=== PATIENT | male | born 1960 | race Two or more races ===

== ENCOUNTER 2016-10-04 13:56 | Emergency (ER) | payer OTHER ==
[~2016-10-04] VITALS: Ht 157.5 cm; Wt 66.7 kg
--- NOTE | 2016-10-04 13:58 | NUR ---
PT BIBRA FROM AN URGENT CARE TO ER BED 09. PT STATES BEEN HAVING PRESSURE LIKE CHEST PAIN SINCE LAST NIGHT. MILD PAIN. 04/12. PT WAS GIVEN NITRO AND ASPIRIN DINING ROOM BUSSER W/ NO RELIEF. GOWNED AND PLACED ON MONITOR.
--- NOTE | 2016-10-04 14:21 | NUR ---
PT IS STATING HE IS PAIN FREE AT THIS TIME.
--- NOTE | 2016-10-04 14:21 | NUR ---
DR LOZANO AT BEDSIDE FOR EVAL.
[2016-10-04 14:45] LABS: BASOPHILS # (AUTO) 0.1 /CMM (0.0-0.2); BASOPHILS % (AUTO) 1.4 % (0.0-2.0); EOSINOPHILS # (AUTO) 0.3 /CMM (0.0-0.7); EOSINOPHILS % (AUTO) 2.4 % (0.0-6.0); HEMATOCRIT 45 % (39-51); HEMOGLOBIN 14.9 g/dL (13.5-17.5); LYMPHOCYTES # (AUTO) 3.5 /CMM (0.8-4.8); LYMPHOCYTES % (AUTO) 32.9 % (20.0-44.0); MEAN CORPUSCULAR HEMOGLOBIN 30 PG (26.0-33.0); MEAN CORPUSCULAR HGB CONC 33 g/dl (31.0-36.0); MEAN CORPUSCULAR VOLUME 91 fL (80-96); MONOCYTES # (AUTO) 0.6 /CMM (0.1-1.30); MONOCYTES % (AUTO) 5.7 % (2.0-12.0); NEUTROPHILS # (AUTO) 6.1 /CMM (1.8-8.9); NEUTROPHILS % (AUTO) 57.6 % (43.0-81.0); PLATELET COUNT (AUTO) 278 /CMM (150-450); RDW COEFFICIENT OF VARIATION 12.2 (11.5-15.0); RED BLOOD CELL COUNT(AUTO) 4.97 MIL/uL (4.5-6.0); WHITE BLOOD COUNT (AUTO) 10.6 K/uL (4.3-11.0)
--- NOTE | 2016-10-04 14:45 | NUR ---
RADIOLOGY AT BEDSIDE FOR CHEST XRAY.
[2016-10-04 14:50] LABS: CALCIUM, SERUM 8.4 mg/dL (8.5-10.1)
[2016-10-04 14:52] LABS: INR 0.98 (0.87-1.13); PROTHROMBIN TIME 10.2 SECS (9.5-12.7)
[2016-10-04 15:16] LABS: TROPONIN I 2.494 ng/mL (0.00-0.056)
--- NOTE | 2016-10-04 15:21 | NUR ---
CALLED NURSING SUP. FOR TELE BED
[2016-10-04] MEDS ORDERED: ASPIRIN 81 MG TAB.CHEW ONE (15:23)
[2016-10-04] MEDS ORDERED: ASPIRIN 325 MG TABLET PO ONE (15:30)
[2016-10-04] MEDS ORDERED: ENOXAPARIN SODIUM 60 MG/0.6 ML DISP.SYRIN SQ ONE ×2 (15:30→15:49)
--- NOTE | 2016-10-04 15:51 | NUR ---
CALLED , TRANSFERRED CALL TO
--- NOTE | 2016-10-04 15:56 | NUR ---
PAUL FROM [facility] CALLED [phone]; WITH ORDERS TO FAXED FACE SHEET AND H&P TO [phone]
--- NOTE | 2016-10-04 16:06 | NUR ---
[facility]ED [facility]UMENTS TO [facility]
--- NOTE | 2016-10-04 16:35 | NUR ---
pt resting in bed. somewhat agitated about the long wait. b/p 162/101 otherwise stable vitals. denies chest pain. will continue to monitor.
--- NOTE | 2016-10-04 17:23 | NUR ---
CALLED PAUL AT [facility] TO FOLLOWUP WITH TRANSPORT OF PT, SHE SAID SHE IS OFF RIGHT NOW BUT GAVE ME THE NUMBER FOR [facility] [phone] TO FOLLOW UP, CALLED [facility], GAVE HER ADDITIONAL PT INFO, SHE SAID SHE WILL CALL ME BACK IN A LITTLE BIT
--- NOTE | 2016-10-04 18:31 | NUR ---
CALLED MAGDALENA WITH [facility] TO FOLLOW UP WITH PT, SHE SAID SHE HAS A BED AT [place], SHE IS JUST WAITING TO HEAR FROM THE NURSING SUP. THERE AND SHE WILL CALL ME BACK.
--- NOTE | 2016-10-04 20:10 | NUR ---
CALLED MAGDALENA AT [facility], SAID SHE WILL CALL THE NURSING SUP AT [place] AND CALL ME BACK
--- NOTE | 2016-10-04 20:19 | NUR ---
PT ACCEPTED TO [facility] BY DR. ALBERT. PT WILL GO TO ROOM 659-1, NUMBER FOR REPORT IS [phone]. MAGDALENA FROM [facility] IS SETTING UP TRANSPORT.
--- NOTE | 2016-10-04 20:37 | NUR ---
RECEIVED CALL FROM JOSE E NICHOLS ETA [phone]
--- NOTE | 2016-10-04 21:15 | NUR ---
REPORT GIVEN TO LISA AT [place]. AWAITING TRANSFER.
[2016-10-04 21:51] VITALS: BP 156/91
== END 2016-10-04 21:54 | disposition short-term general hospital (02) ==
LOC: ER 13:58
DX: I21.4 Non-ST elevation (NSTEMI) myocardial infarction (principal); F17.200 Nicotine dependence, unspecified, uncomplicated
CPT/HCPCS: 36415; 71010-TC; 80048-TC; 84484-TC; 85025-TC; 85730-TC; 87081-TC; A4606; J1650; Z7610